=== PATIENT | male | born 1940 | race Caucasian/White ===

== ENCOUNTER 2017-05-14 06:58 | Day surgery (SDC) | payer MEDICARE, BC ==
[~2017-05-14 06:58] MED LIST: Acetaminophen TAB* 325 MG PO PRN; Buffered Lidocaine 0.9% SYRIN* 5 ML/SYR SYRINGE INTRADERM ONE
[2017-05-14] MEDS ORDERED: Midazolam* 1 MG/ML 2 ML VIAL (2 MG) ONE (08:40)
[2017-05-14 09:17] VITALS: BP 141/85
[2017-05-14] MEDS ORDERED: Neomycin/Polymy/Dex OPTH.SUSP* MAXITROL 0.1% 5 ML ONE (09:45)
[2017-05-14] MEDS ORDERED: Povidone Iodine 5% OPTH* 30 ML BTL ONE (09:45)
[2017-05-14] MEDS ORDERED: Cyclopentolate 1% OPTH.SOL* 2 ML BTL ONE (09:45)
[2017-05-14] MEDS ORDERED: acetaZOLAMIDE TAB* 250 MG ONE (09:45)
[2017-05-14] MEDS ORDERED: Lidocaine 2% EPI 1:200000 MPF* 20 ML VIAL ONE (09:45)
[2017-05-14] MEDS ORDERED: Lidocaine 1% MPF* 2 ML VIAL ONE (09:45)
[2017-05-14] MEDS ORDERED: Phenylephrine 2.5% OPTH.SOL* 2 ML BTL ONE (09:45)
[2017-05-14] MEDS ORDERED: Proparacaine 0.5% OPHTH.SOL* 15 ML BTL ONE (09:46)
[2017-05-14] MEDS ORDERED: Ketorolac 0.5% OPHTH (NF) 0.5 % 5 ML BTL ONE (09:46)
--- NOTE | 2017-05-14 10:53 | OP ---
DATE OF OPERATION: 05/14/2017 - [facility] DATE OF : 1940. SURGEON: Wilder Singh M.D. PREOPERATIVE DIAGNOSIS: Cataract right eye. POSTOPERATIVE DIAGNOSIS: Cataract right eye. OPERATIVE PROCEDURE: Extracapsular cataract extraction with intraocular lens implant right eye. DESCRIPTION OF PROCEDURE: The patient was brought to the operating room after being given 1/2% Alcaine with epinephrine drops in the preoperative area. The eye was prepped and draped in the usual sterile fashion. Sterile drape and eyelid speculum were placed. Again, topical 1/2% Alcaine with epinephrine was given. A paracentesis incision was made at the 9 o'clock position with the No.75 blade. Clear cornea incision 2.2 x 2.2-mm was created at the 12 o'clock position starting at the anterior limbus using the 2.2-mm keratome. The anterior chamber was irrigated with 0.4 mL of 1% non-preservative intracameral lidocaine and filled with DisCoVisc. A capsulorrhexis was completed using the cystotome and the Utrata forceps. Hydrodissection was performed with balanced salt solution. The lens nucleus was removed with the Phacoemulsification handpiece without incident. Cortex was removed with the irrigation-aspiration handpiece. The capsular bag was re-inflated using DisCoVisc and an [id number] 23.5 implant was inserted with the shooter. The irrigation-aspiration handpiece was used to remove all residual DisCoVisc. The eye was refilled with balanced salt solution and the wound checked and found to be watertight. Topical Maxitrol drops were given. [id number]/[facility] #: [id number] [facility]
== END 2017-05-14 09:27 | disposition home or self-care (01) ==
LOC: OREAST 06:58
PROVIDERS: ATTEND Specialist
DX: Z01.818 Encounter for other preprocedural examination (principal); H25.813 Combined forms of age-related cataract, bilateral; H50.21 Vertical strabismus, right eye; I10 Essential (primary) hypertension; F32.9 Major depressive disorder, single episode, unspecified; E78.00 Pure hypercholesterolemia, unspecified; K21.9 Gastro-esophageal reflux disease without esophagitis; Z79.82 Long term (current) use of aspirin
CPT/HCPCS: A9270-GY; J2250; V2632

== ENCOUNTER 2017-05-21 07:51 | Day surgery (SDC) | payer MEDICARE, BC ==
[2017-05-21] MEDS ORDERED: Midazolam* 1 MG/ML 2 ML VIAL (2 MG) ONE (08:44)
[2017-05-21] MEDS ORDERED: fentaNYL* 50 MCG/ML 2 ML VIAL (100 MCG VIAL) ONE (08:44)
[2017-05-21 09:43] VITALS: BP 130/76
--- NOTE | 2017-05-21 10:50 | OP ---
DATE OF OPERATION: 05/21/2017. DATE OF : 1940. SURGEON: Wilder Singh M.D. PREOPERATIVE DIAGNOSIS: Cataract left eye. POSTOPERATIVE DIAGNOSIS: Cataract left eye. OPERATIVE PROCEDURE: Extracapsular cataract extraction with intraocular lens implant left eye. PROCEDURE: The patient was brought to the operating room after being given 1/2% Alcaine with epineph rine drops in the preoperative area. The eye was prepped and draped in the usual sterile fashion. S terile drape and eyelid speculum were placed. Again, topical 1/2% Alcaine with epinephrine was given . A paracentesis incision was made at the 3 o'clock position with the No.75 blade. Clear cornea inc ision 2.2 x 2.2-mm was created at the 6 o'clock position starting at the anterior limbus using the 2. 2-mm keratome. The anterior chamber was irrigated with 0.4 mL of 1% non-preservative intracameral li docaine and filled with DisCoVisc. A capsulorrhexis was completed using the cystotome and the Utrata forceps. Hydrodissection was performed with balanced salt solution. The lens nucleus was removed wi th the Phacoemulsification handpiece without incident. Cortex was removed with the irrigation-aspira tion handpiece. The capsular bag was re-inflated using DisCoVisc and an SN60WF 23.5 implant was inse rted with the shooter. The irrigation-aspiration handpiece was used to remove all residual DisCoVisc . The eye was refilled with balanced salt solution and the wound checked and found to be watertight. Topical Maxitrol drops were given. [id number]/[facility] #: [id number]
[2017-05-21] MEDS ORDERED: Ketorolac 0.5% OPHTH (NF) 0.5 % 5 ML BTL ONE (11:38)
[2017-05-21] MEDS ORDERED: Neomycin/Polymy/Dex OPTH.SUSP* MAXITROL 0.1% 5 ML ONE (11:38)
[2017-05-21] MEDS ORDERED: Lidocaine 1% MPF* 2 ML VIAL ONE (11:38)
[2017-05-21] MEDS ORDERED: Phenylephrine 2.5% OPTH.SOL* 2 ML BTL ONE (11:38)
[2017-05-21] MEDS ORDERED: Proparacaine 0.5% OPHTH.SOL* 15 ML BTL ONE (11:38)
[2017-05-21] MEDS ORDERED: acetaZOLAMIDE TAB* 250 MG ONE (11:38)
[2017-05-21] MEDS ORDERED: Lidocaine 2% EPI 1:200000 MPF* 20 ML VIAL ONE (11:38)
[2017-05-21] MEDS ORDERED: Cyclopentolate 1% OPTH.SOL* 2 ML BTL ONE (11:38)
[2017-05-21] MEDS ORDERED: Povidone Iodine 5% OPTH* 30 ML BTL ONE (11:38)
== END 2017-05-21 09:53 | disposition home or self-care (01) ==
LOC: OREAST 07:51
PROVIDERS: ATTEND Specialist
DX: H25.812 Combined forms of age-related cataract, left eye (principal); H50.21 Vertical strabismus, right eye; Z96.1 Presence of intraocular lens
CPT/HCPCS: A9270-GY; J2250; J3010; V2632

== ENCOUNTER 2017-06-05 07:30 | Inpatient (IN) | payer MEDICARE, BC ==
--- NOTE | 2017-05-23 22:09 | HP ---
PREOPERATIVE HISTORY AND PHYSICAL: DATE OF ADMISSION/SURGERY: 06/05/17 DATE OF OFFICE VISIT: 05/23/17 ATTENDING SURGEON: Julia Godfrey MD * (DICTATED BY IRVING WATSON) PROCEDURE: Right total knee replacement. CHIEF COMPLAINT: Right knee pain. HISTORY OF PRESENT ILLNESS: Manuel is a 77-year-old male who presents to the clinic for right knee pain due to severe end-stage osteoarthritis. He has failed conservative measures and has therefore agreed to undergo a right total knee replacement with Dr. Godfrey on 06/05/17. PAST MEDICAL HISTORY: 1. Hypertension. 2. Depression. 3. 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 PAST SURGICAL HISTORY: 1. Right knee arthroscopy. 2. Right leg surgery for a fracture. 3. Tonsillectomy. 4. Lymph node removal from his neck. 5. Left total knee replacement. 6. Eye surgery as a child. The patient denies prior complications from anesthesia. MEDICATIONS: 1. Sertraline HCL 25 mg 1 by mouth daily. 2. Hydrochlorothiazide 25 mg 1 by mouth daily. 3. Amlodipine besylate 10 mg 1 by mouth daily. 4. Ambien 5 mg 1 by mouth at bedtime as needed. 5. Vitamin C 250 mg 1 by mouth once a week. 6. Aleve 220 mg as needed. ALLERGIES: No known drug allergies. FAMILY HISTORY: Positive for renal cancer. Denies family history of DVT or PE. SOCIAL HISTORY: He reports occasional alcohol consumption. He denies tobacco use or illegal drug use. REVIEW OF SYSTEMS: A 14-point review of systems was reviewed with the patient. Positive for current complaint. Otherwise, negative. Denies fever, chills, chest pain, shortness of breath. Denies history of bleeding disorder or history of DVT or PE. PHYSICAL EXAMINATION GENERAL: A well-developed, well-nourished 77-year-old male, in no acute distress. Alert and oriented x3. Appropriate mood and affect. VITAL SIGNS: Height 71.25, weight 200, blood pressure 136/72, respiratory rate 17, temperature 97.2, BMI 27.7. HEENT: Normocephalic, atraumatic. PERRLA. Throat: Clear. NECK: Supple. PULMONARY: Lungs are clear to auscultation bilaterally. No wheezing, rhonchi, or rales. CARDIO: Regular rate and rhythm. S1, S2. No murmurs, gallops, or rubs. No edema. ABDOMEN: Positive bowel sounds, soft, and nontender. MUSCULOSKELETAL: Right lower extremity, the skin is intact. No abrasions or open wounds. He does have 15 degrees of valgus deformity, that corrects about 5 degrees. Moderate effusion. Tenderness over the medial and lateral joint line. MCL laxity but with an endpoint. Range of motion 5 to 120 degrees. There is patellofemoral crepitus. Stable varus and valgus stress. +2 PT pulse. Sensation is intact to light touch distally. DIAGNOSTIC STUDIES: Multi-view x-rays of the right knee reveal severe end- stage valgus arthritis with xyec-np-werm contact laterally and tricompartmental joint space narrowing, osteophyte formation, subchondral sclerosis. IMPRESSION: Right knee end-stage osteoarthritis. PLAN: The patient is scheduled to undergo a right total knee replacement with Dr. Godfrey on 06/05/17. He will return to the office 10 to 14 days postop for followup and suture removal. A prescription for Percocet was sent for postop pain management. The patient states that he has Colace at home. He states that after his last surgery, he was treated post-operatively with aspirin. So, we will see how he responds to the Coumadin intraoperatively before sending him a postop script. If he needs it, it will be sent at the time of discharge. IRVING WATSON [id number]/[facility] #: [id number] [facility]
[~2017-06-05 07:30] MED LIST changes: +Acetaminophen TAB* 325 MG PO ONE; -Acetaminophen TAB* 325 MG PO PRN; +DiMENhydriNATE IV* 50 MG/ML VIAL IV PUSH PRN; +Famotidine IV* 10 MG/ML 2 ML (20 mg) IV ONE; +Gabapentin CAP(*) 300 MG PO ONE; +Ketorolac INJ* 30 MG/ML 1 ML VIAL IV ONE; +Morphine INJ* 2 MG/ML 1 ML CARPUJECT IV PRN; +Naloxone* 0.4 MG/ML 1 ML VIAL IV PRN; +PROCHLORPERAZINE INJ 5 MG/ML 2 ML VIAL IV PRN; +Scopolamine 1.5 mg* PATCH TRANSDERM PRN; +fentaNYL* 50 MCG/ML 2 ML VIAL (100 MCG VIAL) IV PRN; +oxyCODONE/Acetamin 5/325 MG* TAB PO PRN
[2017-06-05] MEDS ORDERED: Famotidine IV* 10 MG/ML 2 ML (20 mg) ONE (08:01)
[2017-06-05] MEDS ORDERED: Ketorolac INJ* 30 MG/ML 1 ML VIAL ONE (08:01)
[2017-06-05] MEDS ORDERED: ceFAZolin 2 GM PREMIX (*) 2 GM/50 ML BAG IVPB ONE (08:01)
[2017-06-05] MEDS ORDERED: Gabapentin CAP(*) 300 MG ONE (08:01)
[2017-06-05] MEDS ORDERED: Acetaminophen TAB* 325 MG ONE (08:01)
[2017-06-05] MEDS ORDERED: Buffered Lidocaine 0.9% SYRIN* 5 ML/SYR SYRINGE ONE (08:09)
[2017-06-05] MEDS ORDERED: Morphine PF AMP (0.5MG/ML)* 5 MG/10 ML AMP ONE (08:57)
[2017-06-05] MEDS ORDERED: KETAMINE HCL* 50 MG/ML 10 ML VIAL ONE (08:57)
[2017-06-05] MEDS ORDERED: fentaNYL* 50 MCG/ML 2 ML VIAL (100 MCG VIAL) ONE (08:57)
[2017-06-05] MEDS ORDERED: Midazolam* 1 MG/ML 10 ML VIAL (10 MG) ONE (08:57)
[2017-06-05] MEDS ORDERED: Naloxone* 0.4 MG/ML 1 ML VIAL IV PRN (10:54)
[2017-06-05] MEDS ORDERED: Ketorolac INJ* 15 MG/ML 1 ML VIAL IV PUSH PRN (10:54)
[2017-06-05] MEDS ORDERED: diPHENhydraMINE IV* 50 MG/ML 1 ml VIAL (BENADRYL) IV PRN (10:54)
[2017-06-05] MEDS ORDERED: Naloxone* 2 MG in NS 0.9% 250 ML* 250 ML IV PRN (10:54)
[2017-06-05] MEDS ORDERED: PROCHLORPERAZINE INJ 5 MG/ML 2 ML VIAL IV PRN (10:54)
[2017-06-05] MEDS ORDERED: Nalbuphine* 20 MG/ML 1 ML VIAL IV PRN (10:54)
[2017-06-05] MEDS ORDERED: oxyCODONE/Acetamin 5/325 MG* TAB PO PRN (10:54)
[2017-06-05] MEDS ORDERED: Ondansetron INJ* 2 MG/ML VIAL IV PRN (10:54)
[2017-06-05] MEDS ORDERED: DiMENhydriNATE IV* 50 MG/ML VIAL IV PUSH PRN (10:54)
[2017-06-05] MEDS ORDERED: Acetaminophen TAB* 325 MG PO PRN (11:19)
[2017-06-05] MEDS ORDERED: Magnesium Hydroxide LIQ* 30 ML UDC PO PRN (11:19)
[2017-06-05] MEDS ORDERED: Bisacodyl SUPP* 10 MG SUPP PR PRN (11:19)
[2017-06-05] MEDS ORDERED: Bupivacaine 0.5% SDV PF* 10-30ML VIAL ONE (12:52)
[2017-06-05] MEDS ORDERED: Bupivacaine 0.25% SDV* 30 ML ONE (12:52)
[2017-06-05] MEDS ORDERED: Propofol* 10 MG/ML 20 ML BTL IV PUSH ONE (12:53)
[2017-06-05] MEDS ORDERED: Lidocaine 2% PF * 5 ML VIAL ONE (12:53)
[2017-06-05] MEDS ORDERED: Dexamethasone IV* 4 MG/ML 1 ML (4 MG) ONE (12:53)
[2017-06-05] MEDS ORDERED: Lidocaine 2% PF* 10 ML AMP ONE (12:53)
[2017-06-05] MEDS ORDERED: Ondansetron INJ* 2 MG/ML VIAL ONE (12:53)
[2017-06-05] MEDS ORDERED: hydrALAZINE IV* 20 MG/ML VIAL ONE (12:54)
--- NOTE | 2017-06-05 13:47 | RAD ---
INDICATION: Right knee arthroplasty COMPARISONS: None relevant TECHNIQUE: Fluoroscopy was provided for a surgical procedure. Total fluoroscopy time is: 5.4 seconds FINDINGS: Spot images demonstrate knee arthroplasty. IMPRESSION: FLUOROSCOPY WAS PROVIDED FOR A SURGICAL PROCEDURE CPT II Codes: 6045F
--- NOTE | 2017-06-05 13:51 | RAD ---
INDICATION: Status post total right knee replacement surgery. COMPARISON: Comparison is made with a prior study from January 20, 2017. Correlation is also made with an intraoperative study obtained earlier today. TECHNIQUE: 2 views of the right knee were obtained. FINDINGS: The patient is status post total right knee replacement surgery. The bones and prostheses are in normal alignment. There is a surgical drain anterior to the distal femur. There is an old healed fracture of the proximal right fibula which is partially visualized on this study. IMPRESSION: STATUS POST TOTAL RIGHT KNEE REPLACEMENT SURGERY.
[2017-06-05] MEDS ORDERED: Warfarin TAB(*) 6 MG PO ONE (17:00)
[2017-06-05] MEDS: ceFAZolin 1 GM VIAL(*) 1 GM in NS 0.9% 50 ML* 50 ML IVPB SCH (18:15)
[2017-06-05] MEDS: Docusate CAP* 100 MG PO SCH (19:42)
[2017-06-05] MEDS: Magnesium Hydroxide LIQ* 30 ML UDC PO SCH (19:43)
--- NOTE | 2017-06-05 22:09 | CONS ---
HOSPITAL MEDICINE CONSULTATION REPORT: DATE OF CONSULT: 06/05/17 ATTENDING PHYSICIAN: Dr. Julia Godfrey. CONSULTING PHYSICIAN: Riya Morales DO (dictation provided by Cassie Vilchis NP ) PRIMARY DIAGNOSIS: Right total knee replacement. HISTORY OF PRESENT ILLNESS: Mr. Noble is a 77-year-old male with a past medical history of hypertension and depression, who presents to the hospital today for planned right total knee replacement with Dr. Godfrey. Please see the dictated H and P from IRVING Rai for complete details. In brief, the patient has failed conservative measures and therefore opted to undergo right knee replacement today. The patient states that prior to coming into the hospital, he was feeling his normal state of health with no acute complaints. PAST MEDICAL HISTORY: 1. Hypertension. 2. Depression. 3. 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 PAST SURGICAL HISTORY: 1. Right knee arthroscopy. 2. Right leg surgery for fracture. 3. Tonsillectomy. 4. Lymph node removal from his neck. 5. Left total knee replacement. 6. Eye surgery as a child. OUTPATIENT MEDICATIONS: 1. Sertraline 25 mg p.o. daily. 2. Hydrochlorothiazide 25 mg p.o. daily. 3. Amlodipine 10 mg p.o. daily. 4. Ambien 5 mg at bedtime as needed. 5. Vitamin C 250 mg once a month. 6. Aleve 220 mg as needed. ALLERGIES: No known drug allergies. FAMILY HISTORY: Reviewed and noncontributory. SOCIAL HISTORY: No reported alcohol, drug or tobacco use. The patient lives with his , who is his healthcare proxy. REVIEW OF SYSTEMS: A 14-point review of systems was completed with Mr. Noble, and all those not mentioned above were negative. PHYSICAL EXAM: Vital Signs: Temperature 97.4, pulse rate 60, respiratory rate 16, O2 saturation 96% on room air, blood pressure 119/58. General: Mr. Noble is sitting in bed. He is absolutely in no acute distress. He is calm and cooperative to my examination. Neuro: He is alert. He is oriented x3. He moves all extremities equally. There is no facial asymmetry or focal weakness. Extraocular movements are intact. Heart: S1, S2. No murmur, rub, or gallop and regular. Lungs: Clear to auscultation bilaterally with no accessory muscle use and good aeration. Abdomen: Soft, nontender. Bowel sounds positive x4. Extremities: No cyanosis or edema. Skin: Intact. DIAGNOSTIC STUDIES/LAB DATA: Preoperatively on 05/23/17, WBC 5.4, hemoglobin 15.8, hematocrit 47, platelet count 215. Sodium 134, potassium 4.1, chloride 98 , serum bicarbonate 28, BUN 17, creatinine 0.82, glucose 81. ASSESSMENT: Mr. Noble is a 77-year-old male with a past medical history of hypertension, who presents to the hospital with plan for right total knee replacement. Recommendations are as follows: 1. Right total knee replacement: Management per Ortho. The patient will have hemoglobin monitored. Pain medication p.r.n. He will have PT and OT. 2. Hypertension. Plan to hold hydrochlorothiazide, but continue amlodipine. 3. Depression. Continue Sertraline. 4. DVT prophylaxis with Lovenox and warfarin per Ortho. 5. Code status is full code. TIME SPENT: Approximately 60 minutes were spent in the admission of this patient, more than half the time spent with the patient at the bedside reviewing the events leading up to and during this hospitalization, performing the physical examination, and reviewing my plan of care. CASSIE VILCHIS NP [id number]/[facility] #: [id number] [place]
[2017-06-06] MEDS ORDERED: oxyCODONE/Acetamin 5/325 MG* TAB PO PRN (02:06)
[2017-06-06] MEDS ORDERED: Ondansetron INJ* 2 MG/ML VIAL IV PRN (02:06)
[2017-06-06] MEDS ORDERED: diPHENhydraMINE IV* 50 MG/ML 1 ml VIAL (BENADRYL) IV PRN (02:06)
[2017-06-06] MEDS ORDERED: oxyCODONE TAB* 5 MG TAB PO PRN (02:06)
[2017-06-06] MEDS: ceFAZolin 1 GM VIAL(*) 1 GM in NS 0.9% 50 ML* 50 ML IVPB SCH ×2 (02:45→10:15)
[2017-06-06] MEDS: oxyCODONE/Acetamin 5/325 MG* TAB PO PRN ×5 (03:31→20:41)
[2017-06-06 06:19] LABS: Hematocrit 32 % (42-52); Hemoglobin 10.9 g/dl (14.0-18.0); Mean Platelet Volume 9 um3 (7.4-10.4); Platelet Count 164 10^3/ul (150-450)
[2017-06-06 06:48] LABS: EGFR Non-African American 106.1 (>60)
[2017-06-06] MEDS: Magnesium Hydroxide LIQ* 30 ML UDC PO SCH ×2 (07:58→20:42)
[2017-06-06] MEDS: Docusate CAP* 100 MG PO SCH ×2 (07:58→20:40)
[2017-06-06] MEDS: Vitamin THERAPEUTIC TAB PO SCH (07:58)
[2017-06-06] MEDS: Sertraline* 25 MG TAB PO SCH (07:58)
[2017-06-06] MEDS: Enoxaparin(*) 30 MG/0.3 ML SYR SUBCUT SCH (07:58)
[2017-06-06] MEDS: amLODIPine TAB* 5 MG PO SCH (07:58)
--- NOTE | 2017-06-06 09:06 | PN ---
Progress Note - Progress Note Date of Service: 06/06/17 SOAP: Subjective: 77 y/o male s/p R TKA 06/[address] Godfrey. VSS afebrile overnight. patient reports feeling well, pain controlled with PO pain meds. Objective: General- well appearing, sitting in chair comfortably, nad MSK- dressing intact, drain removed without complication, tolerated well. + DF /PF b/l, PT 2+ b/l, neg homans b/l. SITLT b/l Vital Signs Temp 98.5 F 06/06/17 11:35 Pulse 66 06/06/17 11:35 Resp 18 06/06/17 11:53 BP 131/62 06/06/17 11:35 Pulse Ox 97 06/06/17 11:35 Intake & Output 06/05/17 06/06/17 06/06/17 18:59 06:59 18:59 Intake Total 3235 1810 440 Output Total 1300 1050 0 Balance 1935 760 440 Weight 92.986 kg Intake: IV Fluids 2200 1010 ABX - CEFAZOLIN 55 LR 955 rl 2200 IVPB 50 ABX - CEFAZOLIN 50 Oral 1035 750 440 Output: Mcgee 1000 1050 0 Estimated Blood Loss 300 Other: # Bowel Movements 0 Assessment: Stable 77 y/o male s/p R TKA 06/[address] Godfrey. Plan: - DVT prophylaxis- coumadin, lovenox. Coumadin 8mg tonight. - Continue PT/OT - Possible D/C home over the weekend Active Medications Generic Name Dose Route Start Last Admin Trade Name Freq PRN Reason Stop Dose Admin Acetaminophen 650 mg 06/05/17 11:19 Tylenol Tab* PO Q4H PRN PAIN OR TEMPERATURE Amlodipine Besylate 10 mg 06/06/17 09:00 06/06/17 07:58 Norvasc Tab* PO 10 mg QAM PEBBLES Administration Bisacodyl 10 mg 06/05/17 11:19 Dulcolax Supp* MS DAILY PRN constipation Cyclobenzaprine HCl 10 mg 06/05/17 11:19 Flexeril Tab* PO TID PRN SPASMS Diphenhydramine HCl 25 mg 06/06/17 02:06 Benadryl Iv* IV Q6H PRN itching Docusate Sodium 100 mg 06/05/17 21:00 06/06/17 07:58 Colace Cap* PO 100 mg BID PEBBLES Administration Enoxaparin Sodium 30 mg 06/06/17 09:00 06/06/17 07:58 Lovenox(*) SUBCUT 30 mg Q24H PEBBLES Administration Lactated Ringer's 1,000 mls @ 100 mls/hr 06/05/17 12:00 06/06/17 01:35 Lactated Ringers 1000 Ml Bag* IV 100 mls/hr PER RATE PEBBLES Administration Ketorolac Tromethamine 15 mg 06/05/17 10:54 Toradol Inj* IV PUSH Q6H PRN PAIN Magnesium Hydroxide 30 ml 06/05/17 21:00 06/06/17 07:58 Milk Of Magnesia Liq* PO 30 ml BID PEBBLES Administration Magnesium Hydroxide 30 ml 06/05/17 11:19 Milk Of Magnesia Liq* PO Q6H PRN constipation Morphine Sulfate 2 mg 06/06/17 02:06 06/06/17 10:22 Morphine Inj (Syringe)* IV 2 mg Q2H PRN Administration PAIN Multivitamins 1 tab 06/06/17 09:00 06/06/17 07:58 Theragran Tab* PO 1 tab DAILY PEBBLES Administration Ondansetron HCl 4 mg 06/06/17 02:06 Zofran Inj* IV Q6H PRN nausea Oxycodone HCl 10 mg 06/06/17 02:06 Roxycodone Tab* PO Q4H PRN PAIN - SEVERE Oxycodone/Acetaminophen 2 tab 06/06/17 02:06 06/06/17 11:53 Percocet 5/325 Tab* PO 2 tab Q4H PRN Administration PAIN - MODERATE TO SEVERE Oxycodone/Acetaminophen 1 tab 06/06/17 02:06 Percocet 5/325 Tab* PO Q4H PRN PAIN - MODERATE Pharmacy Profile Note 1 note 06/08/17 05:50 Scopolamine Patch Remove* PATCH OFF 06/08/17 05:51 Q72H ONE Pharmacy Profile Note 1 note 06/06/17 17:00 Coumadin Daily Reminder* FOLLOW UP 1700 PEBBLES Sertraline HCl 25 mg 06/06/17 09:00 06/06/17 07:58 Zoloft* PO 25 mg QAM PEBBLES Administration Warfarin Sodium 8 mg 06/06/17 17:00 Coumadin Tab(*) PO 06/06/17 17:01 ONCE@1700 ONE Protocol Zolpidem Tartrate 5 mg 06/06/17 21:00 Ambien Tab* PO BEDTIME PRN SLEEP
--- NOTE | 2017-06-06 09:33 | PN ---
Progress Note - Progress Note Date of Service: 06/06/17 Note: Anesthesia duramorph followup. The patient still has great pain relief. -RICHMOND, -N/ V, neuro ok. When his BP was checked this AM in the sitting position he was a bit hypotensive. There was about 300ml in his drain. I ordered him a 500 ml bolus of LR. He is alert. s/p TKR continue oral meds.
[2017-06-06] MEDS: Morphine INJ* 2 MG/ML 1 ML SYRINGE (TWO MG - NEW SYRINGE VERSION) IV PRN ×3 (10:22→21:25)
--- NOTE | 2017-06-06 10:48 | OP ---
OPERATIVE REPORT: DATE OF OPERATION: 06/05/17 DATE OF : [birth year] SURGEON: Julia Godfrey MD SENIOR CLINICAL DATA MANAGER: IRVING Lundy Ms. did help throughout the procedure with preparation of the leg, wound retraction, manipul ation of the knee, and wound closure. ANESTHESIOLOGIST: Ryland Mena MD ANESTHESIA: Spinal. PRE-OP DIAGNOSIS: Severe end-stage degenerative osteoarthritis of the right knee joint with superior valgus deformity of 18 degrees. POST-OP DIAGNOSIS: Severe end-stage degenerative osteoarthritis of the right knee joint with superio r valgus deformity of 18 degrees. OPERATIVE PROCEDURE: Right total knee arthroplasty. INDICATIONS: Mr. Noble is a 77-year-old gentleman with years of increasingly severe right knee pain and valgus deformity. In the past, he did have a tibia and fibula fracture, treated nonoperatively. Overtime, he developed increasing pain and valgus deformity of the knee. Radiographs showed bone-on -bone arthritis. He has failed conservative treatment with anti-inflammatories, pain medication, int raarticular injection, and physical therapy. He elected to undergo right total knee arthroplasty due to continued pain and decreased quality of life. Informed consent was obtained from the patient. Prabha randhawa understood the risks of the surgery included, but were not limited to, bleeding, infection, damage to nearby structures, continued pain, need for further surgery, intraoperative fracture, nerve palsy, hardware failure, knee stiffness, loss of motion, stroke, heart attack, blood clot, and . He w ished to proceed. The patient also understood that due to his severe valgus deformity, he could possibly require a janet e implant intraoperatively. He consented to this. TOURNIQUET TIME: 69 minutes. COMPLICATIONS: None. ESTIMATED BLOOD LOSS: 300 cc. HARDWARE USED: This is cemented [employer] Nephew total knee arthroplasty hardware. For the femur, a size 8 right posterior stabilized Legion Oxinium femoral component. For the tibia, a size 8 right Ge nesis II tibial baseplate. For the insert, an 11-mm constrained articular insert, size 7/8. For the patella, a 35-mm 3-peg all poly patella. INTRAOPERATIVE FINDINGS: Intraoperatively, the patient is noted to have preop flexion contracture to 10 degrees and valgus deformity of 18 degrees. These were both corrected to anatomic by the end of the case. He was noted to have severe deformity and loss of bone in the lateral tibial plateau. He had lateral femoral condylar hypoplasia. DESCRIPTION OF PROCEDURE: Mr. Noble was identified in the preanesthesia unit. His right lower extre mity was marked as the correct operative side. Informed consent was signed and placed in the chart. The patient was taken to the operating room and placed under spinal anesthesia. A Mcgee catheter wa s placed. Tourniquet was placed on the right thigh. The right lower extremity was prepped and drape d in the usual sterile fashion. Preop time-out was made to correctly identify the patient's side and site. Appropriate perioperative antibiotics were given within 1 hour of incision. Tourniquet was inflated and total tourniquet time for this procedure was 68 minutes. A 12-cm midline incision was made with a 10 blade and carried down to the extensor mechanism. New 10 blade was used to make a standard medial parapatellar arthrotomy. The patella was subluxed laterally. Electrocaut jos was used to subperiosteally elevate soft tissue off the superomedial tibia to the mid sagittal pl ane. The knee was flexed up. There was no anterior horn of the lateral meniscus. There was no ACL. A drill was used to enter the distal femur. Intramedullary distal femoral cutting guide was pinned into position on the distal femur. Lateral femoral condylar hypoplasia was noted and accounted for. 9 mm of the distal bone was removed with the oscillating saw. Next, the external rotation guide was carefully adjusted on the distal femur and pinned into place. The distal femur was sized to a size 8. Size 8 multi-cutting jig was pinned on the distal femur. The oscillating saw was used to make th e appropriate 4 chamfer cuts. The PCL was completely released and the tibia was subluxed anteriorly. Extramedullary tibial cutting guide was pinned on the proximal tibia. Oscillating saw was used to make the proximal tibial cut. T he bone was carefully removed. The knee was brought out into full extension. Spacer block had excellent fit with the knee in full e xtension. The lateral ligaments were tight and the medial ligament was loose, which was expected due to the patient's severe preop valgus deformity. A 15 blade was used to perform pie-crusting techniq ue of the lateral ligaments. Medial and lateral ligamentous balancing was significantly improved. El ectrocautery was used to release any capsule along the posterolateral corner and any osteophytes alexa g the lateral tibial plateau were carefully removed. The knee was flexed up. Lamina water service supervisor was placed both medially and laterally. Any remaining menisc us was carefully removed from the medial and lateral compartments. Posterior osteophytes were remove d using a curved osteotome and curette. Tibial tray and drop rods were placed and once again confirm ed the proximal tibial cut. This was satisfactory. A size 8 right femoral trial was impacted on to the distal femur and had good fit. The box for the posterior stabilized implant was prepared using a reamer and box cut osteotome. Size 8 tibial tray trial with an 11-mm insert trial was placed and th e knee was taken through a range of motion. There was full extension to 130 degrees of flexion with satisfactory patellofemoral tracking. The patella was everted. A 9-mm of patellar bone and cartilage was carefully removed using an oscill ating saw. The patella was sized to a size 35. Three peg holes were drilled through the size 35 guide. A trial 35 patella was placed and the knee w as taken through a range of motion. There was satisfactory patellofemoral tracking. All trials were carefully removed. Bony cut surfaces were copiously irrigated with sterile saline an d dried. Final implants were cemented into place, starting with the tibia, followed by the femur, an d lastly the patella. An 11-mm insert trial was placed while the knee was brought out into full exte nsion. Tourniquet was turned down at 68 minutes. Electrocautery was used to obtain meticulous hemostasis. The knee was copiously irrigated with sterile saline and dried. Once the cement had fully cured, the insert trial was removed. Any excess cement was removed from around the capsule and hardware. Shayla l insert chosen was an 11-mm constrained articular insert, size 7/8. This was locked into position o n the tibial tray without difficulty. Stability of the insert was checked and rechecked and noted to be stable. The extensor mechanism was closed over a medium Hemovac drain using interrupted #1 Vicryls. The rest of the incision was closed in a layered fashion using 0 and 2-0 Vicryls. Skin was closed using runn ing 3-0 nylon suture. Sterile Xeroform, 4x4s, and Webril were used to cover the incision. Reed wrap and cold packs were placed over this. The patient's anesthesia was reversed without difficulty. He was taken to the PACU in stable conditi on. He demonstrates dorsiflexion. Intended weightbearing will be weightbearing as tolerated. Intended DVT prophylaxis will be Coumadin with a Lovenox bridge. [id number]/[facility] #: [id number]
--- NOTE | 2017-06-06 14:12 | PN ---
Subjective Date of Service: 06/06/17 Interval History: Mr. Noble reports right knee pain but denies other complaint. He denies chest pain, SOB, nausea, or abdominal pain. Objective Active Medications: Acetaminophen (Tylenol Tab*) 650 mg PO Q4H PRN Amlodipine Besylate (Norvasc Tab*) 10 mg PO QAM PEBBLES Bisacodyl (Dulcolax Supp*) 10 mg KS DAILY PRN Cyclobenzaprine HCl (Flexeril Tab*) 10 mg PO TID PRN Diphenhydramine HCl (Benadryl Iv*) 25 mg IV Q6H PRN Docusate Sodium (Colace Cap*) 100 mg PO BID PEBBLES Enoxaparin Sodium (Lovenox(*)) 30 mg SUBCUT Q24H PEBBLES Lactated Ringer's (Lactated Ringers 1000 Ml Bag*) 1,000 mls @ 100 mls/hr IV PER RATE PEBBLES Ketorolac Tromethamine (Toradol Inj*) 15 mg IV PUSH Q6H PRN Magnesium Hydroxide (Milk Of Magnesia Liq*) 30 ml PO BID PEBBLES Magnesium Hydroxide (Milk Of Magnesia Liq*) 30 ml PO Q6H PRN Morphine Sulfate (Morphine Inj (Syringe)*) 2 mg IV Q2H PRN Multivitamins (Theragran Tab*) 1 tab PO DAILY PEBBLES Ondansetron HCl (Zofran Inj*) 4 mg IV Q6H PRN Oxycodone HCl (Roxycodone Tab*) 10 mg PO Q4H PRN Oxycodone/Acetaminophen (Percocet 5/325 Tab*) 2 tab PO Q4H PRN Oxycodone/Acetaminophen (Percocet 5/325 Tab*) 1 tab PO Q4H PRN Pharmacy Profile Note (Scopolamine Patch Remove*) 1 note PATCH OFF Q72H ONE Pharmacy Profile Note (Coumadin Daily Reminder*) 1 note FOLLOW UP 1700 PEBBLES Sertraline HCl (Zoloft*) 25 mg PO QAM PEBBLES Warfarin Sodium (Coumadin Tab(*)) 8 mg PO ONCE@1700 ONE Zolpidem Tartrate (Ambien Tab*) 5 mg PO BEDTIME PRN Vital Signs: Temp Pulse Resp BP Pulse Ox 98.5 F 66 18 131/62 97 06/06/17 11:35 06/06/17 11:35 06/06/17 13:38 06/06/17 11:35 06/06/17 11:35 Oxygen Devices in Use Now: None Appearance: Male lying in bed in NAD Eyes: No Scleral Icterus Ears/Nose/Mouth/Throat: Mucous Membranes Moist Neck: Trachea Midline Respiratory: Symmetrical Chest Expansion and Respiratory Effort, Clear to Auscultation Cardiovascular: NL Sounds; No Murmurs; No JVD, No Edema Abdominal: NL Sounds; No Tenderness; No Distention Lymphatic: No Cervical Adenopathy Extremities: No Edema Skin: No Rash or Ulcers Neurological: Alert and Oriented x 3, NL Muscle Strength and Tone Nutrition: Taking PO's Result Diagrams: 06/06/17 05:31 06/06/17 05:30 Microbiology and Other Data: . Assess/Plan/Problems-Billing Assessment: Mr. Noble is a 77 yo M with a PMH of hypertension who was admitted on 06/06/17 with elective R total knee replacement. - Patient Problems (1) Status post total knee replacement, right Comment: - Management per ortho. - Hgb 10.9. (2) HTN (hypertension) Comment: - SBP 100-130. - Continue home amlodipine. (3) DVT prophylaxis Comment: - SQ Lovenox and warfarin per ortho. (4) Full code status Comment: Status and Disposition: Inpatient. Disposition per ortho. Hospital Medicine will sign but we are available for any concerns or questions.
[2017-06-06] MEDS ORDERED: Warfarin TAB(*) 4 MG PO ONE (17:00)
[2017-06-06] MEDS ORDERED: Zolpidem TAB* 5 MG PO PRN (21:00)
[2017-06-07] MEDS: oxyCODONE/Acetamin 5/325 MG* TAB PO PRN ×5 (01:21→19:49)
[2017-06-07 05:45] LABS: Hematocrit 30 % (42-52); Hemoglobin 10.3 g/dl (14.0-18.0); Mean Platelet Volume 9 um3 (7.4-10.4); Platelet Count 146 10^3/ul (150-450)
[2017-06-07 05:57] LABS: INR 1.06 (0.77-1.02)
--- NOTE | 2017-06-07 07:55 | PN ---
Progress Note - Progress Note Date of Service: 06/07/17 SOAP: Subjective: resting comfortably, moderate right knee pain Objective: Vital Signs Temp Pulse Resp BP Pulse Ox 98.6 F 78 16 136/59 95 06/07/17 04:08 06/07/17 04:08 06/07/17 05:26 06/07/17 04:08 06/07/17 04:08 Laboratory Last Values Hgb 10.3 g/dl (14.0-18.0) L 06/07/17 05:23 Hct 30 % (42-52) L 06/07/17 05:23 Plt Count 146 10^3/ul (150-450) L 06/07/17 05:23 MPV 9 um3 (7.4-10.4) 06/07/17 05:23 INR (Anticoag Therapy) 1.06 (0.77-1.02) H 06/07/17 05:23 Sodium 134 mmol/L (133-145) 06/06/17 05:30 Potassium 3.8 mmol/L (3.5-5.0) 06/06/17 05:30 Chloride 100 mmol/L (101-111) L 06/06/17 05:30 Carbon Dioxide 28 mmol/L (22-32) 06/06/17 05:30 Anion Gap 6 mmol/L (2-11) 06/06/17 05:30 BUN 13 mg/dL (6-24) 06/06/17 05:30 Creatinine 0.72 mg/dL (0.67-1.17) 06/06/17 05:30 Est GFR ( Amer) 136.5 (>60) 06/06/17 05:30 Est GFR (Non-Af Amer) 106.1 (>60) 06/06/17 05:30 BUN/Creatinine Ratio 18.1 (8-20) 06/06/17 05:30 Glucose 118 mg/dL (70-100) H 06/06/17 05:30 Calcium 8.5 mg/dL (8.6-10.3) L 06/06/17 05:30 incision: c/d; dressing changed PE:NVI Assessment: s/p right TKA Plan: 1) PT/OT-WBAT 2) ER Morphine added for pain control 3) continue DVT prophylaxis 4) likely home tomorrow
[2017-06-07] MEDS: Magnesium Hydroxide LIQ* 30 ML UDC PO SCH ×2 (08:03→19:50)
[2017-06-07] MEDS: Sertraline* 25 MG TAB PO SCH (08:09)
[2017-06-07] MEDS: Docusate CAP* 100 MG PO SCH ×2 (08:09→19:49)
[2017-06-07] MEDS: Morphine TAB Extended Release (*) 15 MG TAB.ER PO SCH ×2 (08:09→19:49)
[2017-06-07] MEDS: Vitamin THERAPEUTIC TAB PO SCH (08:09)
[2017-06-07] MEDS: Enoxaparin(*) 30 MG/0.3 ML SYR SUBCUT SCH (08:10)
[2017-06-07] MEDS: amLODIPine TAB* 5 MG PO SCH (08:10)
[2017-06-07] MEDS: Morphine INJ* 2 MG/ML 1 ML SYRINGE (TWO MG - NEW SYRINGE VERSION) IV PRN ×2 (09:03→13:36)
[2017-06-07] MEDS: Cyclobenzaprine TAB* 10 MG PO PRN (16:31)
[2017-06-07] MEDS ORDERED: Warfarin TAB(*) 4 MG PO ONE (17:00)
[2017-06-08] MEDS: oxyCODONE/Acetamin 5/325 MG* TAB PO PRN ×3 (01:25→12:25)
[2017-06-08] MEDS: Cyclobenzaprine TAB* 10 MG PO PRN (01:29)
[2017-06-08] MEDS ORDERED: Scopolamine PATCH Remove* 1 NOTE MISC PATCH OFF ONE (05:50)
[2017-06-08 06:37] LABS: Hematocrit 29 % (42-52); Hemoglobin 9.9 g/dl (14.0-18.0); Mean Platelet Volume 9 um3 (7.4-10.4); Platelet Count 151 10^3/ul (150-450)
[2017-06-08 06:49] LABS: INR 0.97 (0.77-1.02)
[2017-06-08] MEDS: Docusate CAP* 100 MG PO SCH (08:36)
[2017-06-08] MEDS: Morphine TAB Extended Release (*) 15 MG TAB.ER PO SCH (08:36)
[2017-06-08] MEDS: amLODIPine TAB* 5 MG PO SCH (08:37)
[2017-06-08] MEDS: Enoxaparin(*) 30 MG/0.3 ML SYR SUBCUT SCH (08:37)
[2017-06-08] MEDS: Sertraline* 25 MG TAB PO SCH (08:37)
[2017-06-08] MEDS: Vitamin THERAPEUTIC TAB PO SCH (08:40)
[2017-06-08] MEDS: Magnesium Hydroxide LIQ* 30 ML UDC PO SCH (08:40)
--- NOTE | 2017-06-08 09:21 | PN ---
Progress Note - Progress Note Date of Service: 06/08/17 SOAP: Subjective: Pt lying comfortably in bed. Pain well controlled today. Vital Signs: Temp Pulse Resp BP Pulse Ox 97.5 F 71 16 120/60 97 06/08/17 07:36 06/08/17 07:36 06/08/17 08:39 06/08/17 07:36 06/08/17 07:36 Laboratory Last Values Hgb 9.9 g/dl (14.0-18.0) L 06/08/17 06:11 Hct 29 % (42-52) L 06/08/17 06:11 Plt Count 151 10^3/ul (150-450) 06/08/17 06:11 MPV 9 um3 (7.4-10.4) 06/08/17 06:11 INR (Anticoag Therapy) 0.97 (0.77-1.02) 06/08/17 06:11 Sodium 134 mmol/L (133-145) 06/06/17 05:30 Potassium 3.8 mmol/L (3.5-5.0) 06/06/17 05:30 Chloride 100 mmol/L (101-111) L 06/06/17 05:30 Carbon Dioxide 28 mmol/L (22-32) 06/06/17 05:30 Anion Gap 6 mmol/L (2-11) 06/06/17 05:30 BUN 13 mg/dL (6-24) 06/06/17 05:30 Creatinine 0.72 mg/dL (0.67-1.17) 06/06/17 05:30 Est GFR ( Amer) 136.5 (>60) 06/06/17 05:30 Est GFR (Non-Af Amer) 106.1 (>60) 06/06/17 05:30 BUN/Creatinine Ratio 18.1 (8-20) 06/06/17 05:30 Glucose 118 mg/dL (70-100) H 06/06/17 05:30 Calcium 8.5 mg/dL (8.6-10.3) L 06/06/17 05:30 Objective: Calves soft, nontender. Inc C/D/I. DP pulses 2+. Sensation intact to light touch Assessment: s/p right TKA POD #3 Plan: OOB PT/OT Pain control - Morphine ER DVT prophylaxis - coumadin 8 mg DC home today
[2017-06-08 12:13] VITALS: BP 136/55
--- NOTE | 2017-06-09 04:53 | DS ---
DISCHARGE SUMMARY: DATE OF ADMISSION: 06/05/17 DATE OF DISCHARGE: 06/08/17 ATTENDING PHYSICIAN: Dr. Julia Godfrey.* (DICTATED BY IRVING OROPEZA) PRINCIPAL DIAGNOSIS: Right knee osteoarthritis. 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 PRINCIPAL PROCEDURE: Right total knee arthroplasty. REASON FOR HOSPITALIZATION: Manuel is a 77-year-old male who presents for right knee pain due to severe end-stage osteoarthritis. He has failed conservative measures and has elected to proceed with right total knee replacement with Dr. Godfrey on 06/05/17. HOSPITAL COURSE: The patient was admitted to the hospital on 06/05/17 in anticipation of right total knee arthroplasty. He underwent surgery without any complications, was transferred to the recovery room and subsequently the surgical stay unit in a stable condition. He has participated with occupational and physical therapy throughout the hospital course. Vital signs remained stable including remaining afebrile. Daily hemoglobin and hematocrit was drawn. His hemoglobin was 9.9 and hematocrit was 29 on the day of discharge. Daily INR was drawn for daily Coumadin dosing for DVT prophylaxis. His INR was 0.97 on the day of discharge and was discharged on 8 mg of Coumadin. The patient was taking oxycodone as well as extended release morphine sulfate 15 mg for pain control and cyclobenzaprine 10 mg t.i.d. DISCHARGE INSTRUCTIONS: Weightbearing as tolerated. Wound care, okay to shower. No bathing, swimming, submerging wound. Use gentle soap, pat dry, cover with gauze, Reed wrap or tape. Call orthopedic office for increased drainage, redness, increased pain or fever. Go to ER with shortness of breath or chest pain. Regular diet. Increase fluids and fiber to prevent constipation. Continue to use stool softeners. Call office if no bowel movement within 48 hours. Continue physical therapy and occupational therapy exercises as shown. Visiting home nurses to do wound checks. Visiting home nurses to draw blood work for INR on Mondays and . Coumadin dosing, take 8 mg tonight. Labs draw on Friday and will receive a call for dosage. Pain control with Percocet 5/325 one to two tabs by mouth every 4 to 6 hours as needed for pain, maximum of 10 tablets per day. Please note that Percocet contains Tylenol, acetaminophen, maximum daily dose of Tylenol is 4000 mg from all sources. Also morphine sulfate 15 mg q.12. Antibiotics required prior to any dental work. Follow up with Dr. Godfrey within 10 to 14 days. Call for an appointment. IRVING OROPEZA [id number]/[facility] #: [id number] [place]
== END 2017-06-08 12:40 | disposition home health service (06) | DRG 470 ==
LOC: AA 07:30 → SSU 15:22
PROVIDERS: ADMIT Orthopaedic Surgery Adult Reconstructive Orthopaedic Surgery; ATTEND Orthopaedic Surgery Adult Reconstructive Orthopaedic Surgery
PROC: 0SRC069 Replacement of Right Knee Joint with Oxidized Zirconium on Polyethylene Synthetic Substitute, Cemented, Open Approach (ICD-10-PCS; principal; 2017-06-05 10:00)
DX: M17.11 Unilateral primary osteoarthritis, right knee (principal); F32.9 Major depressive disorder, single episode, unspecified; I10 Essential (primary) hypertension; Z96.652 Presence of left artificial knee joint; M21.061 Valgus deformity, not elsewhere classified, right knee; M25.761 Osteophyte, right knee; Z86.11 Personal history of tuberculosis; Z72.89 Other problems related to lifestyle; Z80.51 Family history of malignant neoplasm of kidney; Q72.891 Other reduction defects of right lower limb
CPT/HCPCS: 36415; 80048; 85014; 85018; 85049; 85610; 87070; 87073; 87076; 87205; A9270-GY; C1776; J0360; J0690; J1100; J1650; J1885; J2001; J2250; J2270; J2405; J2704; J3010

== ENCOUNTER 2017-10-08 16:48 | Emergency (ER) | payer MEDICARE, BC ==
[2017-10-08 18:15] LABS: Hematocrit 47 % (42-52); Hemoglobin 15.8 g/dl (14.0-18.0); Mean Corpuscular HGB Conc 34 g/dl (31-36); Mean Corpuscular Hemoglobin 31 pg (27-31); Mean Corpuscular Volume 93 fL (80-94); Platelet Count 186 10^3/ul (150-450); Red Blood Count 5.06 10^6/ul (4.0-5.4); Red Cell Distribution Width 14 % (10.5-15); White Blood Count 7.6 10^3/ul (3.5-10.8)
[2017-10-08 18:20] LABS: INR 0.91 (0.77-1.02)
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
[2017-10-08 19:33] VITALS: BP 155/84
== END 2017-10-08 19:29 | disposition home or self-care (01) ==
LOC: ED 16:48
DX: I82.4Z2 Acute embolism and thrombosis of unspecified deep veins of left distal lower extremity (principal); I10 Essential (primary) hypertension; K21.9 Gastro-esophageal reflux disease without esophagitis; Z72.89 Other problems related to lifestyle; I82.412 Acute embolism and thrombosis of left femoral vein
CPT/HCPCS: 36415; 80053; 85027; 85610; 99282